=== PATIENT | female | born 1985 | race Caucasian/White ===

== ENCOUNTER 2021-09-28 10:46 | Emergency (ER) | payer BC ==
[~2021-09-28] VITALS: Ht 167.6 cm; Wt 75.7 kg
[~2021-09-28 10:46] MED LIST: ALBUTEROL2.5 MG/0.5 INH; CIPROFLOXACIN500 MG PO; CLARITIN10 MG PO; COMBIVENT1 ARO IH; EES400 MG PO; MEDROL DOSEPAK4 MG PO; PYRIDIUM200 MG PO; ZITHROMAX Z PA250 MG PO
[2021-09-28] MEDS ORDERED: EUTHYROX50 MCG PO (10:56)
[2021-09-28] MEDS ORDERED: Motrin,Rufen800 MG PO (11:17)
[2021-09-28] MEDS ORDERED: CYCLOBENZAPRINE10 MG PO (11:17)
[2021-09-28] MEDS ORDERED: PREDNISONE50 MG PO (11:17)
== END 2021-09-28 11:27 | disposition home or self-care (01) ==
LOC: ED 10:46
DX: M54.41 Lumbago with sciatica, right side (principal); Z88.1 Allergy status to other antibiotic agents; Z91.040 Latex allergy status; Z79.899 Other long term (current) drug therapy; Z98.890 Other specified postprocedural states